=== PATIENT | female | born 1970 | race Caucasian/White ===

== ENCOUNTER → 2020-06-07 16:12 | Outpatient (CLI) | payer OTHER, SELFPAY | PROVIDERS: Visit Provider Physician Assistant | DX: R49.1 Aphonia (principal) | CPT/HCPCS: 87070 ==

== ENCOUNTER → 2023-04-22 13:10 | Outpatient (CLI) | payer OTHER, SELFPAY ==
--- NOTE | 2023-04-22 13:12 | DI.RAD.S_ITS ---
PROCEDURE: XR FOOT LT MIN 3V INDICATIONS: Left foot pain TECHNIQUE: 3 views of the foot were acquired. COMPARISON: None. FINDINGS: Bones: No fractures or dislocations. No suspicious bony lesions. Mild osteoarthritic changes in ankle and foot. Calcaneal spurring. Soft tissues: No tibiotalar joint effusion. Calcification at the Achilles tendon insertion to calcaneus. IMPRESSION: 1. No acute osseous abnormality. 2. Mild osteoarthritis. 3. Calcaneal spurring. 4. Calcification at the descending insertion to calcaneus, compatible with tendinopathy/enthesopathy. Dictated by: Hermes Arteaga M.D. on 04/22/2023 at 17:09 Approved by: Hermes Arteaga M.D. on 04/22/2023 at 17:11
== END ==
PROVIDERS: Referring Provider Nurse Practitioner Family; Visit Provider Nurse Practitioner Family
DX: S99.922A Unspecified injury of left foot, initial encounter (principal); M19.072 Primary osteoarthritis, left ankle and foot; M77.32 Calcaneal spur, left foot; X58.XXXA Exposure to other specified factors, initial encounter
CPT/HCPCS: 73630